=== PATIENT | male | born 1965 | race Caucasian/White ===

== ENCOUNTER 2017-12-30 05:15 | Inpatient (IN) | payer OTHER, BC ==
[2017-12-30] MEDS: CEFAZOLIN 2 GM/50 ML (PMX) 50 ML IVPB (05:00)
[~2017-12-30 05:15] MED LIST: LACTATED RINGER'S 1,000 ML IV*
[2017-12-30] MEDS ORDERED: SUGAMMADEX SODIUM 200 MG/2 ML VIAL IV (07:00)
[2017-12-30] MEDS ORDERED: PROPOFOL 20 ML (07:10)
[2017-12-30] MEDS ORDERED: ROCURONIUM 50 MG INJ (07:10)
[2017-12-30] MEDS ORDERED: NEOSTIGMINE 3 MG/3 ML SYRINGE (07:10)
[2017-12-30] MEDS ORDERED: MIDAZOLAM 1 MG/ML 2 ML INJ (07:10)
[2017-12-30] MEDS ORDERED: CEFAZOLIN 1 GM INJ (07:10)
[2017-12-30] MEDS ORDERED: DEXAMETHASONE 4 MG/ML 1 ML INJ (07:10)
[2017-12-30] MEDS ORDERED: GLYCOPYRROLATE 0.4 MG INJ (07:10)
[2017-12-30] MEDS ORDERED: ONDANSETRON 4 MG INJ (07:10)
[2017-12-30] MEDS ORDERED: HYDROmorphONE 0.5 MG/0.5 ML SYG IV (07:30)
[2017-12-30] MEDS ORDERED: DIPHENHYDRAMINE 50 MG INJ IV ×2 (07:30→08:30)
[2017-12-30] MEDS ORDERED: CEPASTAT LOZENGE MT (07:30)
[2017-12-30] MEDS: CEFAZOLIN 1 GM/50 ML (PMX) 50 ML IVPB ×3 (07:30→23:09)
[2017-12-30] MEDS ORDERED: AL HYDROX/MG HYDROX/SIMETH 30 ML CUP PO (07:30)
[2017-12-30] MEDS ORDERED: BISACODYL 10 MG SUPP PR (07:30)
[2017-12-30] MEDS ORDERED: NALOXONE (0.4 MG/ML) INJ IV (07:30)
[2017-12-30] MEDS: CA CHLORIDE 10% 10 ML SYRINGE (08:09)
[2017-12-30] MEDS: POLYMYXIN/BACITRACIN 1L IRRIG (08:09)
[2017-12-30] MEDS: SURGIFOAM POWDER 1 GM KIT (08:09)
[2017-12-30] MEDS: LIDOCAINE 1%/EPI 30 ML INJ (08:10)
[2017-12-30] MEDS: THROMBIN 5000 UNIT VIAL (08:10)
[2017-12-30] MEDS ORDERED: OXYCODONE/ACETAMINOPHEN (5/325) TAB PO ×2 (08:30)
[2017-12-30] MEDS ORDERED: ALBUTEROL 0.083% (NEB) 2.5 MG/3 ML AMP HHN (08:30)
[2017-12-30] MEDS ORDERED: EPHEDrine SULFATE 50 MG/5 ML SYG IV (08:30)
[2017-12-30] MEDS ORDERED: LABETALOL HCL 20MG INJ IV (08:30)
[2017-12-30] MEDS ORDERED: TRIMETHOBENZAMIDE 100 MG/ML VIAL IM (08:30)
[2017-12-30] MEDS ORDERED: HYDROmorphONE (0.2 MG/ML) 10ML SYG IV ×2 (08:30)
[2017-12-30] MEDS ORDERED: IPRATROPIUM (NEB) 0.5 MG/2.5 ML AMP HHN (08:30)
[2017-12-30] MEDS ORDERED: MEPERIDINE 25 MG INJ IV (08:30)
[2017-12-30] MEDS ORDERED: hydrALAzine 20 MG INJ IV (08:30)
[2017-12-30] MEDS ORDERED: FENTAnyl 50 MCG/ML VIAL IV ×3 (08:30)
[2017-12-30] MEDS ORDERED: MIDAZOLAM 1 MG/ML 2 ML INJ IV (08:30)
[2017-12-30] MEDS: PREGABALIN 100 MG CAP PO ×3 (09:00→20:57)
[2017-12-30] MEDS: DOCUSATE SODIUM 100 MG CAP PO ×2 (09:00→20:57)
[2017-12-30] MEDS: FERROUS SULFATE (EC) 325 MG TAB PO ×3 (09:00→20:57)
[2017-12-30] MEDS: ASCORBIC ACID 500 MG TAB PO (09:00)
[2017-12-30] MEDS: FENTAnyl 50 MCG/ML VIAL (09:05)
[2017-12-30] MEDS: BUPIVACAINE 0.25% (MPF) 30 ML INJ (09:06)
[2017-12-30] MEDS: HYDROmorphONE 0.2 MG/ML PCA IV ×2 (10:36→16:35)
[2017-12-30] MEDS: ONDANSETRON 4 MG INJ IV (10:43)
[2017-12-30] MEDS: HYDROmorphONE (0.2 MG/ML) 10ML SYG IV ×2 (10:43→10:53)
[2017-12-30] MEDS: D5W-0.45 NACL + KCL 20 MEQ 1,000 ML IV ×3 (11:02→20:58)
[2017-12-30] MEDS: DIPHENHYDRAMINE 25 MG CAP PO ×2 (13:39→20:57)
[2017-12-31] MEDS: ACETAMINOPHEN 325 MG TAB PO (02:28)
[2017-12-31] MEDS: CYCLOBENZAPRINE 10 MG TAB PO ×2 (02:54→20:13)
[2017-12-31] MEDS: HYDROmorphONE 0.2 MG/ML PCA IV ×2 (04:58→16:10)
[2017-12-31] MEDS: PANTOPRAZOLE (EC) 40 MG TAB PO (05:04)
[2017-12-31 05:08] LABS: ADD MAN DIFF? NO
[2017-12-31 05:15] LABS: BASOPHILS % 0.1 % (0.0-2.0); EOSINOPHILS % 0.1 % (0.0-7.0); HEMOGLOBIN 14.4 g/dl (14.0-18.0); LYMPHOCYTES # 1.7 10^3/ul (0.8-2.9); LYMPHOCYTES % 10.4 % (15.0-51.0); MEAN CORPUSCULAR HEMOGLOBIN 29.9 pg (29.0-33.0); MEAN CORPUSCULAR HGB CONC 34.3 g/dl (32.0-37.0); MEAN CORPUSCULAR VOLUME 87.1 fl (82.0-101.0); MEAN PLATELET VOLUME 9.4 fl (7.4-10.4); MONOCYTE # 1.1 10^3/ul (0.3-0.9); MONOCYTES % 6.4 % (0.0-11.0); NEUTROPHIL # 13.6 10^3/ul (1.6-7.5); NEUTROPHILS % 82.6 % (39.0-77.0); PLATELET COUNT 242 10^3/UL (140-415); RED BLOOD COUNT 4.82 10^6/ul (4.70-6.10); RED CELL DISTRIBUTION WIDTH 11.8 % (11.5-14.5)
[2017-12-31 05:15] LABS: WHITE BLOOD COUNT 16.5 10^3/ul (4.8-10.8)
[2017-12-31 05:37] LABS: ANION GAP 12 (8-16); BLOOD UREA NITROGEN 9 mg/dl (7-20); CARBON DIOXIDE 28 mmol/L (21-31); CHLORIDE 99 mmol/L (97-110); CREATININE 0.84 mg/dl (0.61-1.24); GLUCOSE 112 mg/dl (70-220); MAGNESIUM 1.6 mg/dl (1.7-2.5); POTASSIUM 4.9 mmol/L (3.5-5.1); SODIUM 134 mmol/L (135-144)
[2017-12-31] MEDS ORDERED: PANTOPRAZOLE 40 MG INJ IV (06:00)
[2017-12-31] MEDS: D5W-0.45 NACL + KCL 20 MEQ 1,000 ML IV ×2 (08:18→23:04)
[2017-12-31] MEDS ORDERED: HYDROCODONE/APAP (10/325) TAB PO ×2 (09:30)
[2017-12-31] MEDS: DOCUSATE SODIUM 100 MG CAP PO ×2 (10:28→20:13)
[2017-12-31] MEDS: ASCORBIC ACID 500 MG TAB PO (10:28)
[2017-12-31] MEDS: FERROUS SULFATE (EC) 325 MG TAB PO ×3 (10:28→20:13)
[2017-12-31] MEDS: MAGNESIUM SULFATE 3 GM in DEXTROSE 5% 100 ML IVPB (10:30)
[2017-12-31] MEDS: PREGABALIN 100 MG CAP PO ×3 (10:31→20:13)
[2017-12-31 10:48] LABS: ALANINE AMINOTRANSFERASE 46 IU/L (13-69); ALBUMIN 3.9 g/dl (3.3-4.9); ALKALINE PHOSPHATASE 55 IU/L (42-121); AMYLASE 55 U/L (11-123); ASPARTATE AMINO TRANSFERASE 31 IU/L (15-46); BILIRUBIN,INDIRECT 0.4 mg/dl (0-1.1); BILIRUBIN,TOTAL 0.4 mg/dl (0.2-1.3); TOTAL PROTEIN 6.6 g/dl (6.1-8.1)
[2018-01-01 05:13] LABS: ADD MAN DIFF? NO
[2018-01-01 05:15] LABS: WHITE BLOOD COUNT 11.9 10^3/ul (4.8-10.8)
[2018-01-01 05:15] LABS: BASOPHIL # 0.1 10^3/ul (0.0-0.1); BASOPHILS % 0.5 % (0.0-2.0); EOSINOPHILS # 0.4 10^3/ul (0.0-0.5); EOSINOPHILS % 3.1 % (0.0-7.0); HEMATOCRIT 40.5 % (42.0-52.0); LYMPHOCYTES # 2.8 10^3/ul (0.8-2.9); LYMPHOCYTES % 23.7 % (15.0-51.0); MEAN CORPUSCULAR HEMOGLOBIN 30.3 pg (29.0-33.0); MEAN CORPUSCULAR HGB CONC 34.6 g/dl (32.0-37.0); MEAN CORPUSCULAR VOLUME 87.7 fl (82.0-101.0); MEAN PLATELET VOLUME 9.5 fl (7.4-10.4); MONOCYTES % 8.1 % (0.0-11.0); NEUTROPHIL # 7.6 10^3/ul (1.6-7.5); NEUTROPHILS % 64.1 % (39.0-77.0); PLATELET COUNT 224 10^3/UL (140-415); RED BLOOD COUNT 4.62 10^6/ul (4.70-6.10); RED CELL DISTRIBUTION WIDTH 12.2 % (11.5-14.5)
[2018-01-01] MEDS: PANTOPRAZOLE (EC) 40 MG TAB PO (05:17)
[2018-01-01 05:38] LABS: PHOSPHORUS 2.7 mg/dl (2.5-4.9)
[2018-01-01 05:42] LABS: ANION GAP 14 (8-16); BLOOD UREA NITROGEN 7 mg/dl (7-20); CALCIUM 8.8 mg/dl (8.4-10.2); CARBON DIOXIDE 30 mmol/L (21-31); CHLORIDE 100 mmol/L (97-110); GLUCOSE 111 mg/dl (70-220); POTASSIUM 3.8 mmol/L (3.5-5.1); SODIUM 140 mmol/L (135-144)
[2018-01-01] MEDS: ASCORBIC ACID 500 MG TAB PO (08:57)
[2018-01-01] MEDS: FERROUS SULFATE (EC) 325 MG TAB PO ×2 (08:57→13:24)
[2018-01-01] MEDS: DOCUSATE SODIUM 100 MG CAP PO (08:57)
[2018-01-01] MEDS: PREGABALIN 100 MG CAP PO ×2 (08:58→13:24)
[2018-01-01] MEDS: D5W-0.45 NACL + KCL 20 MEQ 1,000 ML IV (09:04)
== END 2018-01-01 15:50 | disposition home or self-care (01) | DRG 516 ==
LOC: REC 05:15 → MS1 11:58
PROC: 01NB0ZZ Release Lumbar Nerve, Open Approach (ICD-10-PCS; principal; 2017-12-30 07:00)
DX: M48.062 Spinal stenosis, lumbar region with neurogenic claudication (principal); K56.7 Ileus, unspecified; L80 Vitiligo; M54.16 Radiculopathy, lumbar region; Z98.1 Arthrodesis status
CPT/HCPCS: 72020; 74018; 80048; 80076; 82150; 83735; 84100; 85025; 86999; 87086; 97116; 97163; 97530